=== PATIENT | female | born 1985 | race Asian ===

== ENCOUNTER 2017-01-02 08:35 | Outpatient (CLI) | payer OTHER ==
[2017-01-02 09:02] LABS: PLATELET COUNT 413 K/uL (152-353)
[2017-01-02 09:21] LABS: POTASSIUM 3.8 mmol/L (3.6-5.2); SODIUM 135 mmol/L (136-145)
== END 2017-01-02 21:51 | disposition home or self-care (01) ==
LOC: LABW 08:35
PROVIDERS: Internal Medicine
DX: R10.84 Generalized abdominal pain (principal)
CPT/HCPCS: 36415; 80053; 85027

== ENCOUNTER 2017-01-07 08:13 | Outpatient (CLI) | payer OTHER ==
[~2017-01-07] VITALS: Ht 167.6 cm; Wt 67.1 kg
[2017-01-07 10:20] LABS: PLATELET COUNT 380 K/uL (152-353)
== END 2017-01-07 17:15 | disposition home or self-care (01) ==
LOC: INF 08:13
PROVIDERS: Internal Medicine
PROC: 30233N1 Transfusion of Nonautologous Red Blood Cells into Peripheral Vein, Percutaneous Approach (ICD-10-PCS; principal; 2017-01-07)
DX: D64.89 Other specified anemias (principal)
CPT/HCPCS: 36430; 85027; 86850; 86900; 86901; 86922; P9016

== ENCOUNTER 2017-01-09 13:04 | Emergency (ER) | payer OTHER ==
[~2017-01-09] VITALS: Ht 167.6 cm; Wt 67.1 kg
[2017-01-09 14:40] VITALS: TEMP 98.2
[2017-01-09 18:13] VITALS: BP 133/86
== END 2017-01-09 18:14 | disposition home or self-care (01) ==
LOC: ED 13:04
DX: I80.8 Phlebitis and thrombophlebitis of other sites (principal); Z98.890 Other specified postprocedural states
CPT/HCPCS: 99282

== ENCOUNTER 2017-08-10 09:32 | Emergency (ER) | payer OTHER ==
[~2017-08-10] VITALS: Ht 170.2 cm; Wt 66.2 kg
[2017-08-10 09:37] VITALS: TEMP 99.1
[2017-08-10 11:35] VITALS: BP 128/70
== END 2017-08-10 11:36 | disposition home or self-care (01) ==
LOC: ED 09:32
DX: J30.2 Other seasonal allergic rhinitis (principal); H69.90 Unspecified Eustachian tube disorder, unspecified ear
CPT/HCPCS: 99282

== ENCOUNTER 2018-09-13 07:29 | Emergency (ER) | payer OTHER ==
[~2018-09-13] VITALS: Ht 167.6 cm; Wt 67.1 kg
[2018-09-13 07:33] VITALS: BP 118/68; TEMP 98.1
== END 2018-09-13 08:11 | disposition home or self-care (01) ==
LOC: ED 07:29
DX: H10.89 Other conjunctivitis (principal)
CPT/HCPCS: 99282

== ENCOUNTER 2021-11-01 16:50 | Inpatient (IN) | payer OTHER ==
[~2021-11-01] VITALS: Ht 170.2 cm; Wt 62.6 kg
[2021-11-01 16:50] VITALS: BP 131/47; TEMP 101
[2021-11-01 17:22] LABS: PLATELET COUNT 355 K/uL (152-353)
[2021-11-01 17:31] LABS: POTASSIUM 3.1 mmol/L (3.6-5.2)
[2021-11-01 22:56] VITALS: BP 131/63; TEMP 99.2; Ht 170.2 cm; Wt 62.6 kg
[2021-11-02] VITALS (10 sets, daily range): BP systolic 96–133; BP diastolic 53–77; TEMP 98.7–102.9
[2021-11-02 06:00] LABS: POTASSIUM 3.7 mmol/L (3.6-5.2)
[2021-11-02 06:05] LABS: PLATELET COUNT 298 K/uL (152-353)
[2021-11-03] VITALS: BP 116/62; TEMP 98.7
[2021-11-03 04:00] VITALS: BP 111/40; TEMP 99
[2021-11-03 05:47] LABS: POTASSIUM 3.3 mmol/L (3.6-5.2)
[2021-11-03 06:29] LABS: PLATELET COUNT 197 K/uL (152-353)
[2021-11-03 08:00] VITALS: BP 123/54; TEMP 98.7
[2021-11-03] MEDS ORDERED: LEVOFLOXACIN750 MG PO (11:52)
[2021-11-03] MEDS ORDERED: FERROUS SULF325 MG PO (11:54)
[2021-11-03 12:00] VITALS: BP 119/63; TEMP 98.3
[2021-11-03 16:00] VITALS: BP 127/65; TEMP 98.6
== END 2021-11-03 16:35 | disposition home or self-care (01) | DRG 872 ==
LOC: ED 16:50 → MED/SURG 19:11 → UNDODEPER 11-02 21:30 → MED/SURG 11-03 16:35
PROVIDERS: ADMIT Emergency Medicine; ATTEND Internal Medicine
DX: A41.51 Sepsis due to Escherichia coli [E. coli] (principal); N10 Acute pyelonephritis; D64.89 Other specified anemias; N20.0 Calculus of kidney; K45.8 Other specified abdominal hernia without obstruction or gangrene; E87.6 Hypokalemia
CPT/HCPCS: 36415; 80048; 80053; 81002; 81015; 81025; 82150; 82607; 83540; 83550; 83605; 83690; 84443; 85007; 85027; 87040; 87077; 87086; 87088; 87186; 87205; 87635; 96360; 96361; 96365; 96375; 99284; J1956; J2270; J2405; J2916; J7120; Q9963; U0003

== ENCOUNTER 2022-03-10 14:31 | Emergency (ER) | payer OTHER ==
[~2022-03-10] VITALS: Ht 170.2 cm; Wt 62.1 kg
[~2022-03-10 14:31] MED LIST: FERROUS SULF325 MG PO; LEVOFLOXACIN750 MG PO
[2022-03-10 17:13] VITALS: BP 124/63; TEMP 100.4
== END 2022-03-10 17:13 | disposition home or self-care (01) ==
LOC: ED 14:31
DX: B34.9 Viral infection, unspecified (principal); Z20.822 Contact with and (suspected) exposure to COVID-19
CPT/HCPCS: 87502; 87635; 99283; U0003

== ENCOUNTER 2022-11-22 13:52 | Emergency (ER) | payer OTHER ==
[~2022-11-22] VITALS: Ht 170.2 cm; Wt 68.0 kg
[2022-11-22 13:59] VITALS: BP 111/79; TEMP 98.4
[2022-11-22 14:35] LABS: PLATELET COUNT 257 K/uL (152-353)
== END 2022-11-22 19:52 | disposition home or self-care (01) ==
LOC: ED 13:52
PROVIDERS: Family Medicine
DX: D50.9 Iron deficiency anemia, unspecified (principal); J30.9 Allergic rhinitis, unspecified; R05.9 Cough, unspecified; J02.9 Acute pharyngitis, unspecified
CPT/HCPCS: 85027; 87502; 87635; 96372; 99283; J1885; J2930; U0003